=== PATIENT | female | born 1960 | race Caucasian/White ===

== ENCOUNTER → 2020-08-03 18:21 | Outpatient (CLI) | payer BC, SELFPAY ==
--- NOTE | ~2020-08-03 | MM_ITS ---
EXAMINATION: MM screening dave BI w jamir HISTORY: Screening mammogram TECHNIQUE: Craniocaudal and mediolateral oblique 3-D tomosynthesis images were obtained and synthetic 2-D images were generated. CAD analysis was submitted and interpreted. COMPARISON: 11/17/2018, 11/15/2015, 11/01/2013 bilateral digital screening mammogram examinations BREAST PARENCHYMAL COMPOSITION: There are scattered areas of fibroglandular density. FINDINGS: There is asymmetry in the posterior central right breast on craniocaudal view; diagnostic r ight mammogram is recommended, with sonographic correlation. Otherwise there Is no evidence of suspicious mass, calcification, or architectural distortion to sugg est malignancy in either breast. There has been no suspicious interval change. IMPRESSION: 1. Posterior central asymmetry of right breast on craniocaudal view 2. Diagnostic right mammogram and right breast ultrasound examination are recommended BI-RADS Category 0: Incomplete: Needs additional imaging evaluation. Reviewed, dictated and finalized at location A. IMPRESSION: 1. Posterior central asymmetry of right breast on craniocaudal view 2. Diagnostic right mammogram and right breast ultrasound examination are recom mended BI-RADS Category 0: Incomplete: Needs additional imaging evaluation.
== END ==
PROVIDERS: PCP Family Medicine; Visit Provider Family Medicine
DX: Z12.31 Encounter for screening mammogram for malignant neoplasm of breast (principal); R92.8 Other abnormal and inconclusive findings on diagnostic imaging of breast
CPT/HCPCS: 77063; 77067

== ENCOUNTER → 2020-08-29 08:27 | Outpatient (CLI) | payer BC, SELFPAY ==
--- NOTE | ~2020-08-29 | MMUS_ITS ---
EXAMINATION: MM diagnostic mammo unilat RT, US breast RT limited HISTORY: Right breast asymmetry on screening mammogram TECHNIQUE: Additional 3-D tomosynthesis images of the right breast were performed and synthetic 2-D i mages were generated. CAD analysis was submitted and interpreted. High resolution limited right breas t ultrasound was performed. COMPARISON: 08/03/2020, 11/17/2018, 12/02/2015 FINDINGS: MAMMOGRAPHIC FINDINGS: There is a return to baseline fibroglandular appearance with spot compression of the right breast. No suspicious mass, calcification, or architectural distortion are identified. There is no persistent a symmetry. ULTRASOUND: There is no evidence of focal abnormal solid or cystic lesion in the vicinity of the mammographic fin ding in question. IMPRESSION: 1. No mammographic or sonographic evidence of malignancy. 2. Recommend routine screening mammography in one year. BI-RADS Category 1: Negative Reviewed, dictated and finalized at location A. ADMINISTRATOR IMPRESSION: 1. No mammographic or sonographic evidence of malignancy. 2. Recommend routine screening mammography in one year. BI-RADS Category 1: Negative
== END ==
PROVIDERS: PCP Family Medicine; Visit Provider Family Medicine
DX: R92.8 Other abnormal and inconclusive findings on diagnostic imaging of breast (principal)
CPT/HCPCS: 76642; 77065

== ENCOUNTER 2021-01-31 10:30 | Outpatient (RCR) | payer BC, SELFPAY ==
[2020-11-21 11:11] VITALS: BMI 40.1
[2020-11-21 11:19] VITALS: BMI 40.1
== END 2021-01-31 13:54 | disposition home or self-care (01) ==
LOC: ANHDMC 10:30
PROVIDERS: PCP Family Medicine; Visit Provider Family Medicine
DX: E11.65 Type 2 diabetes mellitus with hyperglycemia (principal); Z71.3 Dietary counseling and surveillance; Z71.89 Other specified counseling
CPT/HCPCS: 97802; G0108

== ENCOUNTER → 2021-03-28 13:55 | Outpatient (CLI) | payer BC, SELFPAY ==
--- NOTE | ~2021-03-28 | XR_ITS ---
EXAMINATION: XR chest 2V 03/28/2021 14:35 INDICATION: Asthma. Dyspnea. PROCEDURE: 2 view chest COMPARISON: No prior studies for comparison. FINDINGS: The lungs are clear. The cardiomediastinal silhouette is within normal limits. There are no pleural effusions. There is no pneumothorax suspected. IMPRESSION: 1: NO ACUTE CARDIOPULMONARY DISEASE. Reviewed, dictated and finalized at location A.
== END ==
PROVIDERS: PCP Family Medicine; Visit Provider Family Medicine
DX: J45.909 Unspecified asthma, uncomplicated (principal)
CPT/HCPCS: 71046

== ENCOUNTER → 2022-08-26 09:11 | Outpatient (CLI) | payer BC, SELFPAY ==
--- NOTE | ~2022-08-26 | DEXA_ITS ---
Bone Density Report Name: BELLE LUX Age: 62 Sex: Female Ethnicity: White Date of : 1960 Indication: postmenopausal; screening for osteoporosis; asthma or emphysema; hysterectomy; Referring Provider: LISETTE MELCHOR Study: Bone densitometry was performed. Exam Date: August 26, 2022 Accession number: [id number] Bone Density: Region BMD T-score Z-score Classification AP Spine (L1-L4) 1.321 2.5 4.1 Normal Femoral Neck (Left) 0.826 -0.2 1.2 Normal Total Hip (Left) 1.116 1.4 2.5 Normal Femoral Neck (Right) 0.839 -0.1 1.3 Normal Total Hip (Right) 1.083 1.2 2.3 Normal Total Hip Mean 1.100 1.3 2.4 Normal World Health Organization criteria for BMD impression classify patients as: Normal (T-score at or above -1.0), Osteopenia (T-score between -1.0 and -2.5), or Osteoporosis (T-score at or below -2.5). 10-year Fracture Risk: FRAX not reported because: All T-scores for Spine Total, Hip Total, Femoral Neck at or above -1.0 Previous Exams: Region Exam Age BMD T-score BMD Change BMD Change Date g/cm2 vs Baseline vs Previous AP Spine(L1-L4) 08/26/2022 62 1.321 2.5 -0.034 0.030* 11/17/2018 58 1.291 2.2 -0.065 -0.024 10/20/2013 53 1.315 2.4 -0.040* -0.040* 09/20/2011 51 1.355 2.8 Total Hip(Left) 08/26/2022 62 1.116 1.4 -0.025 0.014 11/17/2018 58 1.101 1.3 -0.040 0.021 10/20/2013 53 1.080 1.1 -0.061* -0.061* 09/20/2011 51 1.141 1.6 Total Hip(Right) 08/26/2022 62 1.083 1.2 -0.094 -0.036* 11/17/2018 58 1.118 1.4 -0.058 0.020 10/20/2013 53 1.098 1.3 -0.079* -0.079* 09/20/2011 51 1.177 1.9 *Denotes significance at 95% confidence level, LSC for AP Spine = 0.022 g/cm2, LSC for Total Hip = 0.027 g/cm2 Clinical Information Provided by Patient: Has used the following medications: Calcium, MULTI VIT Has the following medical conditions: Asthma or Emphysema, Hysterectomy Patient maximum height was 64 Menopause Age: 38 No regular weight bearing exercise Onset of menses at age 11 Number of children 1 Impression: The patient has normal bone mass. The BMD for the Total Hip(Right) decreased, changing by -0.036 since the last DXA exam. Discussion: BONE DENSITY IS ABOVE THE MINIMUM DESIRABLE LEVEL AT ALL SKELETAL SITES TEST
== END ==
PROVIDERS: PCP Family Medicine; Visit Provider Obstetrics & Gynecology Gynecology
DX: Z78.0 Asymptomatic menopausal state (principal)
CPT/HCPCS: 77080

== ENCOUNTER → 2022-08-26 09:14 | Outpatient (CLI) | payer BC, SELFPAY ==
--- NOTE | ~2022-08-26 | MM_ITS ---
EXAMINATION: MM screening dave BI w jamir HISTORY: Screening TECHNIQUE: Craniocaudal and mediolateral oblique 3-D tomosynthesis images were obtained and synthetic 2-D images were generated. CAD analysis was submitted and interpreted. COMPARISON: Comparison to multiple prior studies sequentially, with oldest reviewed study dated 09/13. BREAST PARENCHYMAL COMPOSITION: Breast composed of scattered areas of fibroglandular density FINDINGS: There is no evidence of suspicious mass, calcification, or architectural distortion to sugg est malignancy in either breast. There has been no suspicious interval change. IMPRESSION: 1. No mammographic evidence of malignancy. 2. Recommend routine screening mammography in one year. BI-RADS Category 1: Negative Reviewed, dictated and finalized at location A. INE TECHNICIAN
== END ==
PROVIDERS: PCP Family Medicine; Visit Provider Family Medicine
DX: Z12.31 Encounter for screening mammogram for malignant neoplasm of breast (principal)
CPT/HCPCS: 77063; 77067

== ENCOUNTER → 2023-08-01 10:38 | Outpatient (CLI) | payer BC, SELFPAY ==
--- NOTE | ~2023-08-01 | XR_ITS ---
XR shoulder LT min 2V DATE: 08/01/2023 11:30 INDICATION: Left shoulder pain TECHNIQUE: 4 views COMPARISON: None FINDINGS: There is scoliosis and degenerative spurring of the thoracic spine. There is osteopenia. No fracture or dislocation, periosteal reaction or bone destruction or abnormal soft tissue calcifica tion of the left shoulder. IMPRESSION: Levoscoliosis and degenerative spurring of the thoracic spine Osteopenia Reviewed, dictated and finalized at location B.
== END ==
PROVIDERS: PCP Physician Assistant; Visit Provider Physician Assistant
DX: M41.84 Other forms of scoliosis, thoracic region (principal); M85.88 Other specified disorders of bone density and structure, other site
CPT/HCPCS: 73030

== ENCOUNTER → 2023-11-14 13:34 | Outpatient (CLI) | payer BC, SELFPAY ==
--- NOTE | ~2023-11-14 | MM_ITS ---
EXAMINATION: MM screening dave BI w jamir HISTORY: Screening TECHNIQUE: Craniocaudal and mediolateral oblique 3-D tomosynthesis images were obtained and synthetic 2-D images were generated. CAD analysis was submitted and interpreted. COMPARISON: Comparison to multiple prior studies sequentially, with oldest reviewed study dated 12/2015. BREAST PARENCHYMAL COMPOSITION: There are scattered areas of fibroglandular density. FINDINGS: There is no evidence of suspicious mass, calcification, or architectural distortion to sugg est malignancy in either breast. There has been no suspicious interval change. IMPRESSION: 1. No mammographic evidence of malignancy. 2. Recommend routine screening mammography in one year. BI-RADS Category 1: Negative Reviewed, dictated and finalized at location A. FLOOR SUPERVISOR
== END ==
PROVIDERS: PCP Family Medicine; Visit Provider Obstetrics & Gynecology Gynecology
DX: Z12.31 Encounter for screening mammogram for malignant neoplasm of breast (principal)
CPT/HCPCS: 77063; 77067

== ENCOUNTER 2025-02-03 02:50 | Day surgery (SDC) | payer OTHER, SELFPAY ==
[2025-01-24 10:02] VITALS: BMI 36.5
--- OUTSIDE RECORDS SUMMARY | 2025-02-03 02:52 | XMS_ITS | Continuity of Care Document ---
Author Organization [facility] Address [address] [place] [address] Phone Care Team Providers Care Film Color Tester Name Role Phone Ronnie Oconnor DO Unavailable Unavailable Advance Directives Directive Yes / No Effective Date File Name No Information Encounters Encounter Description Practice Location Reason(s) For Visit Diagnoses Date Provider Providers [facility]ied on [facility], [address], [place], [place], [id number], [place] tel:[phone] [facility] No Information Elvin Rivera. [address] [place], [address], [place]. tel: [phone] Family History Family Member Type Diagnosis Age At Onset No Information Payers Payer name Insurance type Covered constitution party ID Authoriza tion(s) No Information Social History Type Description Quantity Date Captured Comments Sex Female Smoking Status No Information Chief Complaint And Reason For Visit No Information Reason For Referral Reason For Referral No Information History Of Present Illness Encounter Date Complaint History Of Prese nt Illness No Information Functional Status Date Functional Assessmen t No Information Instructions Date Instruction Additional Infor mation No Information Assessments Type Assessment Date No Information Patient Care Teams Name Effective Dates (start - stop) Status Members No Information
--- OUTSIDE RECORDS SUMMARY | 2025-02-03 02:53 | XMS_ITS | Continuity of Care Document ---
Author Organization [facility] Address [id number] [place] [address] [address] [place] [address] Phone Care Team Providers Care Track Grinder Operator Name Role Phone Lloyd GOLDMAN MD, Alejandro Unavailable Unavailable Procedures Procedure Date OFFICE/OUTPATIENT VISIT, [facility] OPHTHALMIC BIOMETRY OPHTHALMIC BIOMETRY SPECIAL EYE EXAM, INITIAL SPECIAL EYE EXAM, INITIAL Advance Directives Directive Yes / No Effective Date File Name No Information Encounters Encounter Description Practice Location Reason(s) For Visit Diagnoses Date Provider Providers Copied on Encounter OFFICE/OUTPA TIENT VISIT, [facility] Op[facility]mology [facility], [address], [place], [place], [address], [place] tel:[phone] [facility] No Information 4 Lloyd Allen. [address], [place], [place], [address] , [place]. tel:[phone] Referring Provider: Alejandro Desai MD P, [address], [place], [address] . tel:[phone] Family History Family Member Type Diagnosis Age At Onset No Information Payers Payer name Insurance type Covered democrat ID Authordidia daniela(s) [facility] [id number] Social History Type Description Quantity Date Captured [...]
[2025-02-03 09:38] VITALS: BP 123/83; PULSE 71; RESP 18; TEMP 36.1; O2SAT 98
--- NOTE | 2025-02-03 09:42 | P.PNAN_ITS ---
Anes - Initial Pre Proc Eval Procedure: Operation Date: 02/03/25 11:00 Proposed Procedures p Screening Colonoscopy - Rocco Olivarez MD Date/Time: 02/03/25 09:42 Surgeon: Rocco Olivarez MD Pre Op Diagnosis: Screening Patient Data Age: 64 Gender: F Height: 1.6 m Weight: 92.4 kg Last Vital Signs Temp 97 F L 02/03/25 09:38 Pulse 71 02/03/25 09:38 Resp 18 02/03/25 09:38 BP 123/83 02/03/25 09:38 Pulse Ox 98 02/03/25 09:38 O2 Del Method Room Air 02/03/25 09:38 Allergies Allergy/AdvReac Type Severity Reaction Status Date / Time povidone Allergy Severe RASH Verified 02/03/25 09:36 iodine Allergy Intermediate REDNESS/SWE Verified 02/03/25 09:36 LLING Penicillins Allergy Mild rash Verified 02/03/25 09:36 propoxyphene Allergy Mild rash Verified 02/03/25 09:36 Home Medications ?Medication ?Instructions ?Recorded ?Confirmed ?Type blood-glucose meter ([employer] #1 ea 01/19/21 01/24/25 Rx Ultra2 Meter kit) lancets 33 gauge (Cloudpic GlobalTouch Delica #100 ea 06/19/22 01/24/25 Rx Lancets) lancing device with lancets kit #100 ea 08/01/23 01/24/25 Rx (Cloudpic GlobalTouch Delica Plus Lancing Device kit) albuterol sulfate 90 mcg/actuation 1 inh inhalation Q4H #8.5 grams 03/19/24 01/24/25 Rx aerosol inhaler (ProAir HFA) budesonide-formoterol HFA 160 2 puff inhalation Q12H #10.2 grams 08/02/24 01/24/25 Rx mcg-4.5 mcg/actuation aerosol inhaler (Symbicort) levothyroxine 100 mcg tablet See Rx Instructions .Route 10/04/24 02/03/25 Rx .COMPLEX #90 tabs montelukast 10 mg tablet See Rx Instructions .Route 10/04/24 02/03/25 Rx .COMPLEX #90 tabs meloxicam 15 mg tablet See Rx Instructions .Route 10/20/24 02/03/25 Rx .COMPLEX #90 tabs metformin 500 mg tablet 1,000 mg (2 x 500 mg) PO BID #360 11/22/24 02/03/25 Rx tabs blood sugar diagnostic #100 ea 12/18/24 01/24/25 Rx B-complex with vitamin C 1 tablet PO DAILY 01/24/25 02/03/25 History cholecalciferol (vitamin D3) 125 125 mcg PO DAILY 01/24/25 02/03/25 History mcg (5,000 unit) capsule fluticasone propionate 230 1 inh inhalation DAILY 01/24/25 02/03/25 History mcg-salmeterol 21 mcg/actuation HFA inhaler (Advair HFA) scejtehm-xou-bgaes ac 400 1 tablet PO DAILY 01/24/25 02/03/25 History mcg-calcium carb 500 mg-vit K1 20 mcg tablet (Women's 50 Plus Multivitamin) Patient hx anesthesia problems: none Family hx anesthesia problems: none Results Review: All pre-operative results and documents have been reviewed as part of the pre- operative evaluation. [facility] Past Medical History Medical History Hypothyroidism (acquired) Allergic asthma Cataract New onset type 2 diabetes mellitus Gallbladder & bile duct stone, acute cholecystitis and obstruction Surgical History Surgical History History of cataract surgery H/O hernia repair History of partial hysterectomy Family History Family History Father Chronic lymphocytic leukemia Social History Social History Social History: Smoking status: Never smoker Second hand tobacco smoke exposure: No Alcohol intake: never Substance use: never Substance use type: does not use Do You Feel Safe in your Home?: Yes Lack of Transportation: No Lack of Food: Never True Current Housing: I Have Housing Concerned About Future Housing: No Difficulty Paying Gas/Electric Bills: No Difficulty Paying for Meds: No Currently Unemployed: No Education: Don't Know Difficulty w/ Childcare or Family Care: No Living arrangements: with family Occupation/Education: occupation Gender identity (if verbalized by the patient): Female Sexual Orientation (if Verbalized by the Patient): Straight or Heterosexual Spiritual care concerns: No Anes - Eval Final PreProcedure Day of Procedure 02/03/25 09:42 Patient weight: normal Heart: regular rate and rhythm Lungs: clear to auscultation Airway: Mallampati scale class II Neurological: alert and oriented Last oral intake: >/= 8 hours ASA classification: III Emergent: no Anesthetic plan: proceed Anesthesia type and monitoring: general GIVS and standard monitoring Results Review: All pre-operative results and documents have been reviewed as part of the pre- operative evaluation. Informed Consent: The patient's anesthetic plan and its attendant risks and benefits were discussed with the patient/family/POA. Questions were solicited and answers provided to the satisfaction of the patient/family/POA.
[2025-02-03] MEDS: LACTATED RINGERS 1,000 ML 150 ML IV CONT (09:52)
[2025-02-03 09:56] LABS: Glucose Point of Care 114 mg/dl (65-105)
--- NOTE | 2025-02-03 10:54 | PM.IMHP ---
H&P: HPI History of Present Illness Date/Time: 02/03/25 10:54 Chief Complaint: Family history of colon cancer Narrative: This patient has family history of colorectal cancer. 2 uncles and a cousin have had colorectal cancer. Her last colonoscopy was 5 years ago, reportedly no polyps. Review of Systems Review of Systems: All systems reviewed & are unremarkable except as noted in HPI and below PMFSH Past Medical History Medical History Hypothyroidism (acquired) Allergic asthma Cataract New onset type 2 diabetes mellitus Gallbladder & bile duct stone, acute cholecystitis and obstruction Surgical History Surgical History History of cataract surgery H/O hernia repair History of partial hysterectomy Family History Family History Father Chronic lymphocytic leukemia Social History Social History Social History: Smoking status: Never smoker Second hand tobacco smoke exposure: No Alcohol intake: never Substance use: never Substance use type: does not use Do You Feel Safe in your Home?: Yes Lack of Transportation: No Lack of Food: Never True Current Housing: I Have Housing Concerned About Future Housing: No Difficulty Paying Gas/Electric Bills: No Difficulty Paying for Meds: No Currently Unemployed: No Education: Don't Know Difficulty w/ Childcare or Family Care: No Living arrangements: with family Occupation/Education: occupation Gender identity (if verbalized by the patient): Female Sexual Orientation (if Verbalized by the Patient): Straight or Heterosexual Spiritual care concerns: No Meds Home Medications and Allergies Home Medications ?Medication ?Instructions ?Recorded ?Confirmed ?Type blood-glucose meter (OneTouch #1 ea 01/19/21 01/24/25 Rx Ultra2 Meter kit) lancets 33 gauge (OneTouch Delica #100 ea 06/19/22 01/24/25 Rx Lancets) lancing device with lancets kit #100 ea 08/01/23 01/24/25 Rx (OneTouch Delica Plus Lancing Device kit) albuterol sulfate 90 mcg/actuation 1 inh inhalation Q4H #8.5 grams 03/19/24 01/24/25 Rx aerosol inhaler (ProAir HFA) budesonide-formoterol HFA 160 2 puff inhalation Q12H #10.2 grams 08/02/24 01/24/25 Rx mcg-4.5 mcg/actuation aerosol inhaler (Symbicort) levothyroxine 100 mcg tablet See Rx Instructions .Route 10/04/24 02/03/25 Rx .COMPLEX #90 tabs montelukast 10 mg tablet See Rx Instructions .Route 10/04/24 02/03/25 Rx .COMPLEX #90 tabs meloxicam 15 mg tablet See Rx Instructions .Route 10/20/24 02/03/25 Rx .COMPLEX #90 tabs metformin 500 mg tablet 1,000 mg (2 x 500 mg) PO BID #360 11/22/24 02/03/25 Rx tabs blood sugar diagnostic #100 ea 12/18/24 01/24/25 Rx B-complex with vitamin C 1 tablet PO DAILY 01/24/25 02/03/25 History cholecalciferol (vitamin D3) 125 125 mcg PO DAILY 01/24/25 02/03/25 History mcg (5,000 unit) capsule fluticasone propionate 230 1 inh inhalation DAILY 01/24/25 02/03/25 History mcg-salmeterol 21 mcg/actuation HFA inhaler (Advair HFA) myxvtkpz-vsq-ykxyz ac 400 1 tablet PO DAILY 01/24/25 02/03/25 History mcg-calcium carb 500 mg-vit K1 20 mcg tablet (Women's 50 Plus Multivitamin) Allergies Allergy/AdvReac Type Severity Reaction Status Date / Time povidone Allergy Severe RASH Verified 02/03/25 09:36 iodine Allergy Intermediate REDNESS/SWE Verified 02/03/25 09:36 LLING Penicillins Allergy Mild rash Verified 02/03/25 09:36 propoxyphene Allergy Mild rash Verified 02/03/25 09:36 Vital Signs Vital Signs - 24 hr 02/03/25 09:38 Temperature 97 F L Pulse Rate 71 Respiratory Rate 18 Blood Pressure 123/83 Pulse Oximetry 98 Oxygen Delivery Room Air Exam Const: General: cooperative and healthy appearing Resp: Effort & Inspection: normal respiratory effort and able to speak in complete sentences Auscultation: clear to auscultation bilaterally Cardio: Rate: regular rate Rhythm: regular rhythm GI: Inspection: normal to inspection GI Palp: No No hepatosplenomegaly present Auscultation: normal bowel sounds Rectal Exam: deferred Skin: General skin exam: normal color Psych: Appearance: grossly normal Mental Status: mental status grossly normal Assessment and Plan Assessment and plan (1) Family history of colon cancer: Code(s): Z80.0 - Family history of malignant neoplasm of digestive organs Status: Acute Assessment and Plan: The patient is deemed a good candidate for the procedure. Consent signed. Will proceed.
[2025-02-03 11:17] VITALS: BP 91/59; PULSE 56; RESP 22; O2SAT 97
[2025-02-03 11:27] VITALS: BP 112/66; PULSE 55; RESP 20; O2SAT 100
[2025-02-03 11:37] VITALS: BP 115/71; PULSE 57; RESP 23; O2SAT 100
== END 2025-02-03 11:53 | disposition home or self-care (01) ==
PROVIDERS: PCP Family Medicine; Referring Provider Student in an Organized Health Care Education/Training Program; Visit Provider Internal Medicine Gastroenterology
PROC: 0DJD8ZZ Inspection of Lower Intestinal Tract, Via Natural or Artificial Opening Endoscopic (ICD-10-PCS; CPT 45378; principal; 2025-02-03 11:00)
DX: Z12.11 Encounter for screening for malignant neoplasm of colon (principal); K64.8 Other hemorrhoids; E03.9 Hypothyroidism, unspecified; E11.9 Type 2 diabetes mellitus without complications; J45.909 Unspecified asthma, uncomplicated; Z79.51 Long term (current) use of inhaled steroids; Z79.84 Long term (current) use of oral hypoglycemic drugs; Z98.890 Other specified postprocedural states; Z80.6 Family history of leukemia; Z80.0 Family history of malignant neoplasm of digestive organs
CPT/HCPCS: G0105; 82948; J2003; J2704; J7120

== ENCOUNTER 2025-05-03 14:46 | Outpatient (CLI) | payer OTHER, SELFPAY ==
--- NOTE | ~2025-05-03 | XR_ITS ---
EXAM: XR hip RT 2V w AP pelvis DATE: 05/03/2025 15:13 HISTORY: M25.551 - Pain in right hip . COMPARISON: 05/03/2025. FINDINGS: Lumbar degenerative disc disease. Soft tissue anchors over the midline. Normal mineralizati on. No fracture or dislocation. No lytic or blastic lesion. Mild degenerative change in the right hip and pubic symphysis. Mild scattered enthesopathy. No erosion or periosteal change. Scattered pelvic phleboliths. IMPRESSION: Lumbar degenerative disc disease. Mild right hip osteoarthritic arthritis. Mild osteitis pubis. Reviewed, dictated and finalized at location K. IMPRESSION: Lumbar degenerative disc disease. Mild right hip osteoarthritic art hritis. Mild osteitis pubis.
--- NOTE | ~2025-05-03 | XR_ITS ---
EXAM/ PROCEDURE: XR lumbar spine 2-3V - 05/03/2025 14:59 CDT HISTORY: 64 years old Female with M25.551 - Pain in right hip COMPARISON: None available TECHNIQUE: Three view(s) FINDINGS/ IMPRESSION: There are no fractures or dislocations.Multilevel degenerative changes are seen. Cholecystectomy clips are seen. Reviewed, dictated and finalized at location A.
== END 2025-05-03 14:47 | disposition home or self-care (01) ==
PROVIDERS: PCP Family Medicine; Visit Provider Student in an Organized Health Care Education/Training Program
DX: M02.2 Postimmunization arthropathy (principal); Z90.49 Acquired absence of other specified parts of digestive tract; M51.369 Other intervertebral disc degeneration, lumbar region without mention of lumbar back pain or lower extremity pain; M16.11 Unilateral primary osteoarthritis, right hip; M86.8X8 Other osteomyelitis, other site
CPT/HCPCS: 72100; 73502